=== PATIENT | male | born 2005 | race Caucasian/White ===

== ENCOUNTER 2025-01-01 21:13 | Emergency (ER) | payer MEDICAID ==
[~2025-01-01] VITALS: Ht 182.9 cm; Wt 95.5 kg
[~2025-01-01 21:13] MED LIST: IBUP100T21 PO; LISD20CA PO
[2025-01-01 21:18] VITALS: BP_SYST 130; PULSE 96; RESP 18; TEMP 98.7; O2SAT 95
--- NOTE | 2025-01-01 21:29 | Physician Documentation ---
History of Present Illness ~ Chief Complaint: Ear Pain Stated Complaint: "CAN'T HEAR OUT OF LEFT EAR" Time Seen by MD: 21:28 Primary Medical Doctor: kelsea [facility] 19-year-old male presents to the emergency department reporting difficulty hearing of the left ear along with ear pressure. He denies chills or fever, nausea or vomiting, chest pain or shortness of Breath. He reports that he feels otherwise at baseline. Medication Reconciliation Allergies: Coded Allergies: fexofenadine (Unverified Allergy, Unknown, 01/01/25) Scheduled Amox Tr/Potassium Clavulanate (Augmentin 875-125 Tablet), 1 TAB PO Q12H Ciprofloxacin Hcl/Hc Otic Susp* (Cipro Hc Otic Susp*), 3 DROP LEFT EAR Q12H Ibuprofen (Motrin), 300 MG PO TID Lisdexamfetamine Dimesylate* (Vyvanse*), 20 MG PO DAILY, (Reported) Past Medical History Past Medical History: No Pertinent History Past Surgical History: no surgical history Alcohol Use: None Drug Use: none Lives with: Family Lives In: Home Occupation: child Review of Systems ROS As stated above in the HPI, otherwise all systems are reviewed and negative. Physical Exam Vital Signs: Temperature: 98.7, Source: Oral, Heart Rate: 96, Respiratory Rate: 18, BP: 130/, Pulse Oximetry: 95, Weight: 95.450 Physical Exam General: Alert, no apparent distress. HEENT: PERRL, EOMI, no injection, moist mucous membranes. Normal right canal and TM. Left canal clear but TM is distorted and has erythema/scabbing/purulence. No light reflex. Neck: Full range of motion. Respiratory: Lungs clear, no respiratory distress. Chest: No accessory muscle use. Cardiovascular: Regular rate and rhythm, no murmurs. Gastrointestinal: Soft, nontender, nondistended. Bowels sounds present. Extremities: Normal range of motion, no deformity. Neurologic: Oriented x4. Psychiatric: Normal mood and affect. Skin: Normal color, warm and dry. No edema, no ecchymosis. Progress Results/Orders Results/Orders Orders - CELIA PAK CR[employer] DEALER Amox Tr/Potassium Clavulanate (Augmentin (01/01/25 21:45) Vital Signs 01/01/25 21:18 Temp 98.7 Pulse 96 Resp 18 B/P (MAP) 130/ Pulse Ox 95 Medical Decision Making Additional Comment Well-appearing 19-year-old male who presents due to concerns for loss of hearing in the left ear along with some pressure and pain. He admits that he was drinking heavily a few days ago, and is concerned that he put something into the ear. His initial concern was that he had left a Q-tip in the ear. There was no foreign body. However, it does appear that the ear drum was perforated. He will be treated with both ear drops and oral antibiotics. He is instructed to avoid some [place] in the left ear for two weeks. This is to allow the ear drum to heal. He is to return if worse at any time. Departure Time of Disposition: 21:43 Disposition: 01 HOME / SELF CARE / HOMELESS Impression: Primary Impression: Acute otitis media of left ear with perforated tympanic membrane Condition: Stable Discharge Instructions: Otitis Media, Adult Additional Instructions: Take the antibiotics as prescribed. Return if worse. Referrals: NO PRIMARY CARE PROVIDER (PCP) Prescriptions Ciprofloxacin Hcl/Hc Otic Susp* (Cipro Hc Otic Susp*) 10 Ml Bottle 3 DROP LEFT EAR Q12H for 7 Days, #10 ML Prov: CELIA PAK NP 01/01/25 Amox Tr/Potassium Clavulanate (Augmentin 875-125 Tablet) 1 Each Tablet 1 TAB PO Q12H for 7 Days, #14 TAB Prov: CELIA PAK NP 01/01/25 Education Educated: Patient Educated regarding: diagnosis, treatment, prognosis, need for follow up Signature Scribe Signature: no scribe Attestation: The note accurately reflects work and decisions made by me.Celia Soria NP 01/01/25 21:55 CELIA PAK NP Jan 01, 2025 21:28
[2025-01-01] MEDS ORDERED: AMOX-117 PO (21:45)
[2025-01-01] MEDS ORDERED: CIPR10DR LEFT EAR (21:45)
[2025-01-01] MEDS: amox tr/potassium clavulanate 875/125mg TAB PO ONE (21:51)
== END 2025-01-01 21:47 | disposition home or self-care (01) ==
LOC: ER 21:14
DX: H66.92 Otitis media, unspecified, left ear (principal); H72.92 Unspecified perforation of tympanic membrane, left ear; Z79.899 Other long term (current) drug therapy
CPT/HCPCS: 99283

== ENCOUNTER 2025-04-12 00:40 | Emergency (ER) | payer MEDICAID ==
[~2025-04-12] VITALS: Ht 180.3 cm; Wt 95.7 kg
[2025-04-12 00:53] VITALS: BP 118/70
[2025-04-12 02:43] LABS: LEUKOCYTE ESTERASE ,URINE NEGATIVE (Neg); OCCULT BLOOD,URINE NEGATIVE (Neg)
[2025-04-12 02:49] LABS: UA COLLECTION TYPE CLN CATCH MIDSTREAM
[2025-04-12 02:50] LABS: NITRITES, URINE NEGATIVE (Neg); SQUAMOUS EPITHELIAL CELL,UR NONE SEEN /LPF (FEW)
--- NOTE | 2025-04-12 03:30 | Physician Documentation ---
History of Present Illness ~ Chief Complaint: Blood in Urine Stated Complaint: URINATING BLOOD Time Seen by MD: 03:26 Primary Medical Doctor: kelsea [facility] This is a previously healthy 19-year-old male who presents for evaluation of sudden onset left flank pain wrapping around into his left groin that began shortly after he had experienced an episode of hematuria. He has been taking [id number] azo for it. No particular palliating factors. Aggravated by attempting to stents straight. Never experienced this in the past. The pain originally began in the left flank, but now spread to his lower back. He has never experienced this in the past. He reports nausea and chills. No concern for tobacco, alcohol or illicit substances use Medication Reconciliation Allergies: Coded Allergies: fexofenadine (Unverified Allergy, Unknown, 01/01/25) Scheduled Ibuprofen (Motrin), 300 MG PO TID Lisdexamfetamine Dimesylate* (Vyvanse*), 20 MG PO DAILY, (Reported) Naproxen (Naproxen), 1 TAB PO Q12H Tamsulosin Hcl* (Flomax*), 1 CAP PO DAILY Scheduled PRN Hydrocodone Bit/Acetaminophen 5/325 MG ([place] 5/325 MG), 1 TAB PO Q6H PRN for pain Past Medical History Past Medical History: No Pertinent History Past Surgical History: no surgical history Alcohol Use: None Drug Use: none Lives with: Family Lives In: Home Occupation: child Review of Systems ROS 10 point review of systems was performed and unless noted above in HPI is negative for acute process/complaint. Physical Exam Vital Signs: Temperature: 98.0, Source: Oral, Heart Rate: 71, Respiratory Rate: 16, BP: 118/70, Pulse Oximetry: 98, Weight: 95.700 Physical Exam GENERAL: Awake, alert, oriented, GCS 15, no apparent distress, non-toxic appearing, answers questions, follows commands appropriately. Examined in bed 18, accompanied by HEENT: Atraumatic, normocephalic, pupils equal, extraocular muscles intact, sclerae anicteric, mucus membranes moist, oropharynx is clear, no stridor. NECK: supple, full active range of motion, trachea midline, no thyromegaly, no lymphadenopathy, no JVD. CARDIOVASCULAR: regular rate/rhythm, no murmurs/gallops/rubs, Pulses are 2+ in all extremities and symmetric. Capillary refill less than 2 seconds. PULMONARY: Nonlabored, good air movement ,no respiratory distress, speaking in full sentences, clear to auscultation bilaterally, no wheezing, no ronchi, no rales, no accessory muscle use. GASTROINTESTINAL: Soft, non-tender, non-distended, normal active bowel sounds, no organomegaly, no pulsatile masses, notable left CVA tenderness. NEUROLOGIC: Lucid with normal mental status. Normal facial symmetry. Moves all extremities symmetrically and with purpose. No truncal ataxia. Speech is fluid without evidence of dysarthria or aphasia, no focal deficits appreciated. MUSCULOSKELETAL: There is full range of motion of all extremities. There is no joint pain or joint swelling or joint erythema. There is no muscle pain or tenderness or swelling. EXTREMITIES: warm, well-perfused, no cyanosis, no clubbing, no edema, no acute deformities. Skin: warm, dry, no rashes or lesions, no jaundice, no petechiae orpurpura. No ecchymosis. PSYCHIATRIC: Normal affect, normal insight, normal concentration. Focused exam: [] Progress Results/Orders Results/Orders Orders - TERE DUMAS DO Ct Abdomen Pelvis (04/12/25 03:26) Completed Orders - TERE DUMAS DO Ua W/Microscopic, Cult If Ind (04/12/25 02:00) Cbc/Diff (04/12/25 03:26) Lipase (04/12/25 03:26) MG (04/12/25 03:26) Ct Abdomen Pelvis (04/12/25 03:26) CMP (04/12/25 03:26) Ketorolac Trometh 30mg/Ml Vial (Toradol (04/12/25 03:30) Morphine 4mg/Ml Inj. (Morphine Inj.) (04/12/25 03:30) Ondansetron Inj. (Zofran 4mg/2ml Vial) (04/12/25 03:30) Medications Received in ER Medications (Trade) Dose Ordered Sig/Victor Manuel Route PRN Reason Start Time Stop Time Status Last Admin Dose Admin (Toradol inj. 30mg/ml) 30 mg ONCE ONCE IV 04/12/25 03:30 04/12/25 03:31 DC 04/12/25 04:02 30 MG (morphine inj.) 4 mg ONCE ONCE IV 04/12/25 03:30 04/12/25 03:31 DC 04/12/25 04:02 4 MG (Zofran 4mg/2ml vial) 4 mg ONCE ONCE IV 04/12/25 03:30 04/12/25 03:31 DC 04/12/25 04:02 4 MG Vital Signs 04/12/25 04/12/25 00:53 04:02 Temp 98.0 Pulse 71 Resp 16 18 B/P (MAP) 118/70 Pulse Ox 98 Laboratory Tests Test 04/12/25 02:00 04/12/25 04:00 Urine Specimen Description Cln catch midstream Urine Color Yellow Urine Clarity Clear Urine pH 6.5 Urine Specific [place] 1.015 Urine Protein Trace Urine Glucose (UA) 100 H Urine Ketones Negative Urine Occult Blood Negative Urine Nitrite Negative Urine Bilirubin Negative Urine Urobilinogen 2.0 H Urine Leukocyte Esterase Negative Urine RBC None seen Urine WBC None seen Urine Squamous Epithelial Cells None seen Urine Bacteria None seen Urine Culture Indicated Not ind Volume Urine Centrifuged 10 ml Urine Comment White Blood Count 8.0 Red Blood Count 5.61 Hemoglobin 15.9 Hematocrit 46.8 Mean Corpuscular Volume 83.4 Mean Corpuscular Hemoglobin 28.3 Mean Corpuscular Hemoglobin Concent 33.9 Red Cell Distribution Width 13.4 Platelet Count 239 Mean Platelet Volume 8.3 Neutrophils (%) (Auto) 51.3 Lymphocytes (%) (Auto) 34.4 Monocytes (%) (Auto) 7.1 Eosinophils (%) (Auto) 6.4 H Basophils (%) (Auto) 0.8 Neutrophils # (Auto) 4.1 Lymphocytes # (Auto) 2.8 Monocytes # (Auto) 0.6 Eosinophils # (Auto) 0.5 Basophils # (Auto) 0.1 CBC Comment Sodium Level 142 Potassium Level 3.8 Chloride Level 106 Carbon Dioxide Level 24.9 Anion Gap 11 Blood Urea Nitrogen 21 H Creatinine 0.80 Estimated GFR/1.73 m2 > 90 BUN/Creatinine Ratio 26.3 H Glucose Level 95 Calcium Level 9.2 Magnesium Level 2.5 H Total Bilirubin 0.8 Aspartate Amino Transf (AST/SGOT) 15 Alanine Aminotransferase (ALT/SGPT) 17 Alkaline Phosphatase 99 Total Protein 7.4 Albumin 4.2 Globulin 3.2 Albumin/Globulin Ratio 1.3 Lipase 37 Chemistry Comments Medical Decision Making Findings Facility Status: ED Holds, RME process The plan was discussed with the patient, who demonstrates clear understanding of the plan and is in agreement with the plan unless otherwise noted in the chart. All questions have been answered, all concerns were addressed unless otherwise documented. I was available throughout their ED stay for frequent reassessment and questions. Differential Diagnoses (considered and possible or likely): [Differential diagnosis considered includes renal colic, acute appendicitis, acute elida cystitis, pancreatitis, gastritis, PUD, diverticulitis, mesenteric ischemia, abdominal aortic aneurysm, bowel obstruction, enteritis, colitis, fecal impaction, volvulus, IBS, inflammatory bowel disease, specific food intolerance, peritonitis, perforated viscous, malignancy, UTI, abscess, and abdominal pain NOS. History, physical exam, and workup exclude many of the more serious causes listed above. ] ??Differential Diagnoses (considered and unlikely, not requiring evaluation currently): [Aortic/great vessels dissection was considered but it is unlikely based on absence of ripping, tearing, migratory chest pain, absence of syncope or focal neurologic deficits, physical examination indicating equal and sym metric pulses.] MDM Data Please see [facility] for the following: Independent Historians and external Records Review. Historian: [Patient] Independent Historians: ?[] Medication Management: [Reviewed medication list] Social History and determinants: [Reviewed] Please see the body of the note for the following: Any independent interpretations of ECG, imaging studies. All vitals signs/haemodynamics, ordered tests were independently reviewed and interpreted by myself. Nursing triage complaint and vitals reviewed, additional nursing notes were reviewed as available and I agree unless otherwise noted or documented in contradiction in the chart Vital Signs: Independently reviewed Labs: Independently interpreted Imaging: Independently interpreted Old Medical Records: Independently reviewed, see [facility] for relevant summary and information Pulse Oximetry: [95%] interpreted as [normal on room air] by me [Intermediate Manager: [Regular Rate, Regular rhythm, no ectopy, NSR] reviewed and interpreted by me] Additionally notably showing: [Hemodynamically stable. CBC is normal. Metabolic panel shows dehydration. On my independent interpretation of the CT there is a small stone in the distal left ureter. No evidence of p yelonephritis. Per Radiology CT shows inflammatory changes of distal small bowel. They did not mentioned kidney stone.] Tests considered but not ordered include: [Ultrasound has been considered, but I feel that CT provide sufficient answer.] Social Determinants of Health Impact: Patient was evaluated in [facility], [facility] [place] to healthcare due to below par ratio of patient to medical providers. [] Comorbid Conditions Impacting Present Evaluation and Care/Treatment: [None] Management Discussions with other Healthcare Providers: [None] Treatment and Disposition Medication Management (Given or considered): [Pain management, antiemetics]. See EMR for details Consideration for Hospitalization/Escalation/Deescalation of Care: Admission for observation has been considered, [however the patient is able to tolerate p.o., their symptoms are controlled, they are able to rely on oral medications, and their chief complaint/diagnosis can be managed on outpatient basis.] ?ED Course:?[Improved.] ?Shared decision making:?[Patient is hemodynamically stable for discharge home with follow with their primary care provider. [ ] Specific and cautious return precautions provided and discussed with full understanding. Any incidental findings were also discussed and follow up recommendations given. [] All questions answered. Patient/family were able to verbalize back return precautions. Patient/family agree to plan. Copies of imaging and laboratory studies were provided.] Code status:?FULL Please see the full Electronic Medical Record for full details of nursing documentation, medications list, other records of complete past medical history and conditions, vital signs, laboratory studies, and any radiologic study interp retations by radiologists. Portions of this note were completed using [employer] dictation software and as a result there may exist minor errors in spelling. I have reviewed elements of past family and social history and agree as included in note. Departure Impression: Primary Impression: Left flank pain Additional Impression: Renal colic Condition: Improved Discharge Instructions: Kidney Stones Referrals: NO PRIMARY CARE PROVIDER (PCP) Prescriptions Hydrocodone Bit/Acetaminophen 5/325 MG ([place] 5/325 MG) 5 Mg/325 Mg Tablet 1 TAB PO Q6H PRN for pain, #14 TAB Prov: TERE DUMAS DO 04/12/25 Naproxen (Naproxen) 500 Mg Tablet 1 TAB PO Q12H, #20 TAB Prov: TERE DUMAS DO 04/12/25 Tamsulosin Hcl* (Flomax*) 0.4 Mg Cap.sr.24h 1 CAP PO DAILY for 30 Days, #30 CAP Prov: TERE DUMAS DO 04/12/25 Education Educated: Patient, Family Educated regarding: diagnosis, treatment, prognosis, need for follow up Signature Scribe Signature: No scribe Attestation: Date: Apr 12, 2025 Time: 03:30 This note accurately reflects clinical decisions, work performed by myself, DO PITER Singletary NICHOLAS M DO Apr 12, 2025 03:30
[2025-04-12] MEDS: ondansetron/PF 4mg/2ml inj IV ONE (04:02)
[2025-04-12] MEDS: morphine 4 MG/ML inj SYRINge IV ONE (04:02)
[2025-04-12] MEDS: ketorolac trometh 30MG/ML vial 30 MG/ML VIAL IV ONE (04:02)
[2025-04-12 04:26] LABS: MEAN PLATELET VOLUME 8.3 FL (7.4-10.4); RED CELL DISTRIBUTION WIDTH 13.4 % (11.5-14.5)
[2025-04-12 04:36] LABS: CREATININE 0.80 MG/DL (0.60-1.10); TOTAL CARBON DIOXIDE 24.9 MMOL/L (24-32); eCRCL 156 ML/MIN; eGFR > 90 ML/MIN
[2025-04-12] MEDS ORDERED: HYDR-3965 PO (05:26)
[2025-04-12] MEDS ORDERED: NAPR-56 PO (05:26)
[2025-04-12] MEDS ORDERED: TAMS-55 PO (05:26)
--- NOTE | 2025-04-12 05:38 | RADIOLOGY REPORT ---
Exam: CT CT ABDOMEN PELVIS W/ IV CONTRAST History: Left flank pain wrapping into left lower quadrant COMPARISON: None Technique: Multidetector spiral CT of the abdomen and pelvis was performed from lung bases to pubic symphysis. Intravenous contrast was administered during this examination. Portal venous imaging was obtained. Axial, coronal and sagittal multiplanar reformats were performed by the technologist on a separate workstation. Radiation Dose : 1. Abdomen/Pelvis: CTDIvol 25 mGy, DLP 1365 mGy*cm. Findings: Lower Chest: No acute findings. Liver: Normal. Gallbladder and Biliary Tree: Unremarkable Pancreas: Unremarkable. Spleen: Unremarkable Adrenal Glands: Unremarkable Kidneys: Normal. Bladder: Unremarkable. Pelvic Organs: Unremarkable as visualized. Bowel: The distal esophagus, stomach, duodenum and proximal to mid small bowel are unremarkable. Mild circumferential wall thickening and submucosal hyperenhancement of the ileum with fluid contents. The appendix is fluid-filled but nondilated and without surrounding inflammatory stranding. Non inflammatory appearance of the large bowel, with moderate proximal stool burden. Vasculature: Unremarkable. Lymphadenopathy: No evident adenopathy. Peritoneum: No ascites, free air, or fluid collection. Abdominal Wall: Small fat containing umbilical hernia. Musculoskeletal: No acute abnormality. IMPRESSION: 1. Inflammatory appearance of the distal small bowel may represent infectious or inflammatory enteritis/ileitis. 2. No other acute abdominopelvic abnormality. Radiation optimization: All CT scans at this facility use at least one of these dose optimization techniques: automated exposure control mA and/or kV adjustment per patient size (includes targeted exams where dose is matched to clinical indication) or iterative reconstruction.
[2025-04-12 06:06] VITALS: PULSE 88; RESP 16; TEMP 98; O2SAT 98
[2025-04-12] MEDS ORDERED: iohexol 300mg/ml 100ml inj. ONE (08:00)
== END 2025-04-12 06:07 | disposition home or self-care (01) ==
LOC: ER 00:41
DX: N23 Unspecified renal colic (principal); Z79.899 Other long term (current) drug therapy
CPT/HCPCS: 36415; 74177; 80053; 81001; 83690; 83735; 85025; 96374; 96375; 99285; J1885; J2270; J2405; Q9967